=== PATIENT | male | born 2000 | race Hispanic/Latino ===

== ENCOUNTER 2019-06-03 09:49 | Emergency (ER) | payer SELFPAY ==
--- NOTE | 2019-06-03 11:23 | RAD REPORT ---
EXAM DESCRIPTION: RAD - Hand Right 3 View - 06/03/2019 10:33 am CLINICAL HISTORY: PAIN COMPARISON: No comparisons FINDINGS: No fracture or dislocation seen.
--- NOTE | 2019-06-03 12:08 | EDPHYS ---
Physician Documentation [facility] Name: Manuel Veliz Age: 19 yrs Sex: Male : 2000 Arrival Date: 06/03/2019 Time: 09:51 Bed 10 Private MD: AYANNA Physician Tung Glass HPI: 06/03 12:01 This 19 yrs old Male presents to ER via Ambulatory with complaints of Hand cheryl Injury. 12:01 The patient or guardian reports pain, swelling. The complaints affect the DIP of right cheryl middle finger and DIP of right ring finger. Context: The problem was sustained outdoors. Onset: The symptoms/episode began/occurred just prior to arrival. Modifying factors: The symptoms are alleviated by elevation, the symptoms are aggravated by. Associated signs and symptoms: The patient has no apparent associated signs or symptoms. The patient has not experienced similar symptoms in the past. Historical: - Allergies: 10:09 No Known Allergies; ca1 - Home Meds: 10: None [Active]; ca1 - PMHx: 10: None; ca1 - PSHx: 10:09 Ankle Surgery; ca1 - Immunization history:: Adult Immunizations up to date, Last tetanus immunization: unknown, Flu vaccine is not up to date. - Social history:: Smoking status: Patient/guardian denies using tobacco. - Ebola Screening: : Patient negative for fever greater than or equal to 101.5 degrees Fahrenheit, and additional compatible Ebola Virus Disease symptoms Patient denies exposure to infectious person Patient denies travel to an Ebola-affected area in the 21 days before illness onset No symptoms or risks identified at this time. - Family history:: not pertinent. ROS: 12:01 Constitutional: Negative for fever, chills, and weight loss, Eyes: Negative for injury, cheryl pain, redness, and discharge, ENT: Negative for injury, pain, and discharge, Neck: Negative for injury, pain, and swelling, Cardiovascular: Negative for chest pain, palpitations, and edema, Respiratory: Negative for shortness of breath, cough, wheezing, and pleuritic chest pain, Abdomen/GI: Negative for abdominal pain, nausea, vomiting, diarrhea, and constipation, Back: Negative for injury and pain, Skin: Negative for injury, rash, and discoloration, Neuro: Negative for headache, weakness, numbness, tingling, and seizure, Psych: Negative for depression, anxiety, suicide ideation, homicidal ideation, and hallucinations, Allergy/Immunology: Negative for hives, rash, and allergies, Endocrine: Negative for neck swelling, polydipsia, polyuria, polyphagia, and marked weight changes, Hematologic/Lymphatic: Negative for swollen nodes, abnormal bleeding, and unusual bruising. 12:01 : Positive for 12:01 MS/extremity: Positive for decreased range of motion, pain, 3rd 4th subungal hematoma. Exam: 12:01 Constitutional: This is a well developed, well nourished patient who is awake, alert, cheryl and in no acute distress. Head/Face: Normocephalic, atraumatic. Eyes: Pupils equal round and reactive to light, extra-ocular motions intact. Lids and lashes normal. Conjunctiva and sclera are non-icteric and not injected. Cornea within normal limits. Periorbital areas with no swelling, redness, or edema. ENT: Nares patent. No nasal discharge, no septal abnormalities noted. Tympanic membranes are normal and external auditory canals are clear. Oropharynx with no redness, swelling, or masses, exudates, or evidence of obstruction, uvula midline. Mucous membranes moist. Neck: Trachea midline, no thyromegaly or masses palpated, and no cervical lymphadenopathy. Supple, full range of motion without nuchal rigidity, or vertebral point tenderness. No Meningismus. Chest/axilla: Normal chest wall appearance and motion. Nontender with no deformity. No lesions are appreciated. Cardiovascular: Regular rate and rhythm with a normal S1 and S2. No gallops, murmurs, or rubs. Normal PMI, no JVD. No pulse deficits. Respiratory: Lungs have equal breath sounds bilaterally, clear to auscultation and percussion. No rales, rhonchi or wheezes noted. No increased work of breathing, no retractions or nasal flaring. Abdomen/GI: Soft, non-tender, with normal bowel sounds. No distension or tympany. No guarding or rebound. No evidence of tenderness throughout. Back: No spinal tenderness. No costovertebral tenderness. Full range of motion. Male : Normal genitalia with no discharge or lesions. Skin: Warm, dry with normal turgor. Normal color with no rashes, no lesions, and no evidence of cellulitis. Neuro: Awake and alert, GCS 15, oriented to person, place, time, and situation. Cranial nerves II-XII grossly intact. Motor strength 5/5 in all extremities. Sensory grossly intact. Cerebellar exam normal. Normal gait. Psych: Awake, alert, with orientation to person, place and time. Behavior, mood, and affect are within normal limits. 12:01 Musculoskeletal/extremity: ROM: full active range of motion, full passive range of motion, Circulation is intact in all extremities. Sensation intact. Compartment Syndrome exam of affected extremity: is normal. DVT Exam: negative Homans' sign noted on exam, no appreciated bluish discoloration, no erythema, no increased warmth, pain, swelling, tenderness. Vital Signs: 10:09 BP 124 / 66; Pulse 67; Resp 17 S; Temp 98.4(TE); Pulse Ox 100% on R/A; Weight 58.97 kg ca1 (R); Height 5 ft. 4 in. (162.56 cm) (R); Pain 7/10; 10:09 Body Mass Index 22.31 (58.97 kg, 162.56 cm) ca1 Procedures: 12:06 Performed 2 small subungal hematomas drained, 18 gauge needle. [facility] MDM: 11:41 Patient medically screened. [facility] 12:05 Data reviewed: vital signs, nurses notes, radiologic studies, plain films. [facility] 06/03 10:11 Order name: XRAY Hand RIGHT 3 View; Complete Time: 12:01 [facility] 06/03 12:01 Order name: Dressing - Wound; Complete Time: 12:39 [facility] 06/03 12:01 Order name: Gloves, Sterile; Complete Time: 12:29 [facility] 06/03 12:01 Order name: Setup Suture Tray; Complete Time: 12:29 [facility] Administered Medications: No medications were administered Disposition: 06/03/19 12:07 Discharged to Home. Impression: Contusion of finger with damage to nail - right 3rd and 4th. - Condition is Stable. - Discharge Instructions: Subungual Hematoma, Subungual Hematoma, [id number]. - Prescriptions for Ibuprofen 600 mg Oral Tablet - take 1 tablet by ORAL route every 8 hours As needed take with food; 20 tablet. Tylenol- Codeine #3 300-30 mg Oral Tablet - take 2 tablets by ORAL route every 6 hours As needed; 20 tablet. - Medication Reconciliation Form, Thank You Letter, Antibiotic Education, Prescription Opioid Use, Work release form form. - Follow up: Private Physician; When: 2 - 3 days; Reason: Recheck today's complaints, Continuance of care, Re-evaluation by your physician. - Problem is new. - Symptoms have improved. Signatures: Dispatcher [employer] EDTung Kwong MD MD cha Acob, Cheryl RN RN ca1 Corrections: (The following items were deleted from the chart) 12:44 12:07 06/03/2019 12:07 Discharged to Home. Impression: Contusion of finger with damage ca1 to nail - right 3rd and 4th. Condition is Stable. Forms are Medication Reconciliation Form, Thank You Letter, Antibiotic Education, Prescription Opioid Use. Follow up: Private Physician; When: 2 - 3 days; Reason: Recheck today's complaints, Continuance of care, Re-evaluation by your physician. Problem is new. Symptoms have improved. cheryl
--- NOTE | 2019-06-03 12:08 | ER ---
Nurse's Notes [facility] Name: Manuel Veliz Age: 19 yrs Sex: Male : 2000 Arrival Date: 06/03/2019 Time: 09:51 Bed 10 Private MD: Diagnosis: Contusion of finger with damage to nail-right 3rd and 4th Presentation: 06/03 10:06 Presenting complaint: Patient states: smashed pointing, ring and middle finger of the R ca1 hand with the car door about an hour ago. Limited ROM on 3 fingers. Transition of care: patient was not received from another setting of care. Onset of symptoms was June 03, 2019. Risk Assessment: Do you want to hurt yourself or someone else? Patient reports no desire to harm self or others. Initial Sepsis Screen: Does the patient meet any 2 criteria? No. Patient's initial sepsis screen is negative. Does the patient have a suspected source of infection? No. Patient's initial sepsis screen is negative. Care prior to arrival: None. 10:06 Method Of Arrival: Ambulatory ca1 10:06 Acuity: FELICIA 4 ca1 Triage Assessment: 10:10 Injury Description:. ca1 Historical: - Allergies: 10:09 No Known Allergies; ca1 - Home Meds: 10:09 None [Active]; ca1 - PMHx: 10:09 None; ca1 - PSHx: 10:09 Ankle Surgery; ca1 - Immunization history:: Adult Immunizations up to date, Last tetanus immunization: unknown, Flu vaccine is not up to date. - Social history:: Smoking status: Patient/guardian denies using tobacco. - Ebola Screening: : Patient negative for fever greater than or equal to 101.5 degrees Fahrenheit, and additional compatible Ebola Virus Disease symptoms Patient denies exposure to infectious person Patient denies travel to an Ebola-affected area in the 21 days before illness onset No symptoms or risks identified at this time. - Family history:: not pertinent. Screenin:35 Abuse screen: Denies threats or abuse. Denies injuries from another. Nutritional ca1 screening: No deficits noted. Tuberculosis screening: No symptoms or risk factors identified. Fall Risk None identified. Assessment: 11:35 General: Appears in no apparent distress. comfortable, Behavior is calm, cooperative, ca1 appropriate for age. Pain: Complains of pain in DIP of right ring finger and DIP of right middle finger Pain currently is 7 out of 10 on a pain scale. Neuro: Level of Consciousness is awake, alert, obeys commands, Oriented to person, place, time, situation. Derm: Skin is intact, is healthy with good turgor, Skin is pink, warm \T\ dry. Bruising that is dark purple, on right middle fingernail and right ring fingernail. Musculoskeletal: Circulation, motion, and sensation intact. Capillary refill < 3 seconds. Vital Signs: 10:09 BP 124 / 66; Pulse 67; Resp 17 S; Temp 98.4(TE); Pulse Ox 100% on R/A; Weight 58.97 kg ca1 (R); Height 5 ft. 4 in. (162.56 cm) (R); Pain 7/10; 10:09 Body Mass Index 22.31 (58.97 kg, 162.56 cm) ca1 ED Course: 09:51 Patient arrived in ED. mr 10:08 Triage completed. ca1 10:09 Arm band placed on left wrist. ca1 10:20 Patient moved to radiology via wheelchair. jb2 10:30 XRAY Hand RIGHT 3 View In Process Unspecified. EDMS 10:30 X-ray completed. Patient tolerated procedure well. Patient moved back from radiology. jb2 11:29 Cynthia Humphreys, RN is Primary Nurse. ca1 11:35 Patient has correct armband on for positive identification. Bed in low position. Call ca1 light in reach. Side rails up X 1. Pulse ox on. 11:35 Patient did not have IV access during this emergency room visit. ca1 11:41 Tung Glass MD is Attending Physician. cheryl 12:30 2 subungal hematoma drainage. Set up tray. Performed by Dr. Glass. Pt tolerated well.ca1 Administered Medications: No medications were administered Outcome: 12:07 Discharge ordered by . cheryl 12:43 Discharged to home ambulatory, with friend. ca1 12:43 Condition: stable 12:43 Discharge instructions given to patient, Instructed on discharge instructions, follow up and referral plans. no drinking with medication, no driving heavy equipment, medication usage, Demonstrated understanding of instructions, follow-up care, medications, Prescriptions given X 2. 12:44 Patient left the ED. ca1 Signatures: Dispatcher [employer] EDMD Tung Glass MD MD cha Rivera, Mary mr Buechter, Jesse jb2 Cynthia Humphreys, RN RN ca1
[2019-06-03 12:51] VITALS: BP 124/66; TEMP 98.4; O2SAT 100
== END 2019-06-03 12:44 | disposition home or self-care (01) ==
LOC: ER 09:49
PROC: 0H9QXZZ Drainage of Finger Nail, External Approach (ICD-10-PCS; principal; 2019-06-03)
DX: S60.131A Contusion of right middle finger with damage to nail, initial encounter (principal); S60.141A Contusion of right ring finger with damage to nail, initial encounter; W23.0XXA Caught, crushed, jammed, or pinched between moving objects, initial encounter; Y93.89 Activity, other specified; Y92.9 Unspecified place or not applicable
CPT/HCPCS: 99283